=== PATIENT | male | born 1990 | race African-American/Black ===

== ENCOUNTER 2018-06-04 15:07 | Emergency (ER) | payer MEDICAID ==
[~2018-06-04] VITALS: Ht 185.4 cm; Wt 78.0 kg
[2018-06-04] MEDS ORDERED: HALOPERIDOL LACTATE 5MG/ML VIAL IM STA (16:25)
[2018-06-04] MEDS ORDERED: KETOROLAC 30MG/ML VIAL IV STA (16:25)
[2018-06-04] MEDS ORDERED: SODIUM CHLORIDE 0.9% 500 ML IV ONE (16:25)
[2018-06-04 16:45] LABS: BASOPHILS % 0.8 % (0.0-2.0); EOSINOPHILS % 0.6 % (0.0-5.0); HEMATOCRIT. 42.1 % (42.0-52.0); HEMOGLOBIN. 14.4 g/dL (14.0-18.0); LYMPHOCYTES % 45.2 % (20.0-50.0); MEAN CORPUSCULAR HEMOGLOBIN 30.4 pg (28.0-32.0); MEAN CORPUSCULAR VOLUME 88.7 fL (80.0-94.0); MEAN PLATELET VOLUME 8.6 fl (7.4-10.4); MONOCYTES % 11.8 % (2.0-8.0); NEUTROPHILS % 41.6 % (40.0-76.0); PLATELET 199 x1000/uL (130-400); RED BLOOD CELL COUNT 4.74 mill/uL (4.7-6.1); RED CELL DISTRIBUTION WIDTH 12.8 % (11.6-14.6)
[2018-06-04 16:49] LABS: CHLORIDE 106 mEq/L (98-107)
[2018-06-04 16:50] LABS: INR 1.1
[2018-06-04 16:54] LABS: ETHANOL BLOOD < 10 mg/dL
[2018-06-04] MEDS ORDERED: IOHEXOL-300 100 ML BOTTLE ONE (18:24)
[2018-06-04 19:44] VITALS: BP 118/68
== END 2018-06-04 19:46 | disposition home or self-care (01) ==
LOC: ER 15:07
DX: R10.9 Unspecified abdominal pain (principal); J45.909 Unspecified asthma, uncomplicated
CPT/HCPCS: 36415; 74177; 80053; 80307; 80329; 83690; 84443; 85025; 85610; 96372; 96374; 99285; G0482; J1630; J1885; J7030; J7040; Q9967; Z7610

== ENCOUNTER 2019-01-03 21:40 | Emergency (ER) | payer MEDICAID ==
[~2019-01-03] VITALS: Ht 185.4 cm; Wt 72.0 kg
[2019-01-03 21:42] VITALS: BP 118/80
== END 2019-01-04 03:44 | disposition left against medical advice (07) ==
LOC: ER 21:40
DX: Z53.21 Procedure and treatment not carried out due to patient leaving prior to being seen by health care provider (principal)

== ENCOUNTER 2021-10-08 01:51 | Emergency (ER) | payer MEDICAID ==
[~2021-10-08] VITALS: Ht 182.9 cm; Wt 82.0 kg
[2021-10-08] MEDS ORDERED: ONDA4TAB5 MT (02:29)
[2021-10-08] MEDS ORDERED: ONDANSETRON 4MG ODT PO ONE (02:30)
[2021-10-08 04:00] VITALS: BP 129/78
== END 2021-10-08 04:11 | disposition home or self-care (01) ==
LOC: ER 02:14
DX: T40.711A Poisoning by cannabis, accidental (unintentional), initial encounter (principal); R07.89 Other chest pain; F31.9 Bipolar disorder, unspecified; Y92.018 Other place in single-family (private) house as the place of occurrence of the external cause
CPT/HCPCS: 71045; 93005; 99283; Q0162